=== PATIENT | male | born 1990 | race Caucasian/White ===

== ENCOUNTER → 2017-02-17 | Outpatient (REF) | payer MEDICAID | LOC: M LAB REF 16:41 | PROVIDERS: ATTEND Internal Medicine Medical Oncology | DX: Z86.73 Personal history of transient ischemic attack (TIA), and cerebral infarction without residual deficits (principal) ==

== ENCOUNTER → 2017-02-17 | Outpatient (REF) | payer OTHER ==
[2017-03-01 00:07] LABS: APTT 28.2 sec (.); Anticardiolipin Ab, IgA <10 APL (.); DRVTT Ratio 1.2 ratio (.); DRVTT Screen Seconds 48.2 sec (.); PROTEIN C ANTIGEN 82 % (60-150); PROTEIN S ANTIGEN FREE 116 % (57-157); PROTEIN S ANTIGEN TOTAL 115 % (60-150)
== END ==
LOC: M LAB REF 13:35
PROVIDERS: ATTEND Internal Medicine Medical Oncology
DX: Z86.73 Personal history of transient ischemic attack (TIA), and cerebral infarction without residual deficits (principal)

== ENCOUNTER → 2020-07-09 | Outpatient (CLI) | payer OTHER, MEDICAID ==
--- NOTE | 2020-07-11 03:11 | ECWPNPC ---
PATIENT NAME: HILARIO LEMOS : 1990 GENDER: MALE VISIT DATE: 07/09/2020 DISCHARGE DATE: 07/09/20 1331 VISIT LOCKED DATE TIME: PHYSICIAN: ALBA BAL RESOURCE: ALBA BAL REASON FOR APPOINTMENT 1. TESTICULAR PAIN HISTORY OF PRESENT ILLNESS DEPRESSION SCREENING: PHQ-2 (2015 EDITION) LITTLE INTEREST OR PLEASURE IN DOING THINGS?NOT AT ALL FEELING DOWN, DEPRESSED, OR HOPELESS?NOT AT ALL TOTAL SCORE0 30-YEAR-OLD MALE IN FOR INITIAL PAIN CONSULT REGARDING RIGHT TESTICULAR PAIN. PATIENT STATES THE PAIN HAS BEEN PRESENT FOR SEVERAL MONTHS AND HAS GOTTEN WORSE. HE DENIES HISTORY OF TRAUMA TO THE AREA. HE FURTHER DENIES ANY MEDICATIONS THAT HE HAS TRIED IN THE PAST THAT HAVE BEEN SUCCESSFUL IN ALLEVIATING HIS SYMPTOMS. GENERAL: - - -. FALL RISK SCREENING: SCREENING : NO FALLS REPORTED IN THE LAST YEAR , : NO FALLS REPORTED IN THE LAST YEAR. PAIN SCREENING: PATIENT HAS A COMPLAINT OF ACUTE OR CHRONIC PAIN :YES LOCATION OF PAIN:OTHER: RIGHT TESTICLE, GROIN INTENSITY OF PAIN (SCALE OF 1 TO 10):5 WHAT DOES YOUR PAIN FEEL LIKE:CONTINOUS, INTERMITTENT, SHARP, THROBBING DURATION:INTERMITTENT, AWAKENS FROM SLEEP PAIN IS INCREASED BY:ACTIVITIES, OTHERS COLD, PRESSURE PAIN IS DECREASED BY:OTHERS NOTHING SEEMS TO HELP NURSING NOTE: - - -. PAIN CENTER INTAKE QUESTIONS: DO YOU HAVE A HISTORY OF MRSA? :NO DO YOU TAKE A BLOOD THINNERS? :NO DO YOU HAVE ANY BLEEDING DISORDERS? :NO ANY NEW NUMBNESS OR WEAKNESS IN YOUR LEGS OR ARMS? :YES OCCASIONAL PAIN IN RIGHT LEG ANY PACEMAKER,DEFIBRILLATOR, OR DORSAL COLUMN STIMULATOR? :NO DO YOU HAVE ANY RASHES OR OPEN SORES? :NO ARE YOU ALLERGIC TO IV DYE? :NO ARE YOU DIABETIC? :NO ANY NEW PROBLEMS WITH YOUR MEDICATIONS? :NO HAVE YOU RECEIVED A VACCINE IN THE PAST 30 DAYS? :NO DO YOU PLAN TO RECEIVE A VACCINE IN THE NEXT 21 DAYS? :NO DO YOU NEED ANY PRESCRIPTION? :NO DO YOU TAKE ANY IMMUNOSUPPRESSIVE MEDICATIONS? :NO CURRENT MEDICATIONS TAKING IBUPROFEN 800 MG TABLET 1 TABLET WITH FOOD OR MILK NEEDED ORALLY EVERY 4 HOURS NEEDED TAKING ACETAMINOPHEN EXTRA STRENGTH 500 MG TABLET 1 TABLET NEEDED ORALLY EVERY 6 HRS NOT-TAKING TRAZODONE HCL 100 MG TABLET 1 TABLET AT BEDTIME ORALLY ONCE A DAY NOT-TAKING FLUOXETINE 20 MG CAPSULE 1 CAPSULE IN THE MORNING ORALLY ONCE A DAY MEDICATION LIST REVIEWED AND RECONCILED WITH THE PATIENT PAST MEDICAL HISTORY PULMONARY EMBOLISM ACL REPAIR ALLERGIES LATEX (FOR ALLERGY USE ONLY): HIVES / RASH CODEINE PHOSPHATE: NAUSEA/REDNESS - ALLERGY SOCIAL HISTORY GENERAL: TOBACCO USE ARE YOU A:CURRENT SMOKER LATEX QUESTIONNAIRE LATEX ALLERGY : HAVE YOU EVER DEVELOPED ANY TYPE OF REACTION AFTER HANDLING LATEX PRODUCTS SUCH RUBBER GLOVES, CONDOMS, DIAPHRAGMS, BALLOONS, SOCKS, OR UNDERWEAR?YES - PLEASE INDICATE :RUBBER GLOVES, CONDOMS, BALLOONS, DIAPHRAGMS, SOCKS, UNDERWEAR LATEX ALLERGY : HAVE YOU EVER DEVELOPED ANY TYPE OF REACTION DURING OR AFTER DENTAL APPOINTMENT, VAGINAL/RECTAL EXAMINATION, SURGICAL PROCEDURE, OR ANY OTHER EXPOSURE?NO LATEX RISK : HAVE YOU EVER HAD ANY DIFFICULTY BREATHING OR HIVES AFTER EATING OR HANDLING ANY FRUITS, OR VEGETABLES; SUCH KIWI, BANANAS, STONE FRUITS, OR CHESTNUTSNO LATEX RISK : DO YOU HAVE A PREVIOUS PERSONAL HISTORY OF MORE THAN NINE SURGERIES, SPINA BIFIDA, OR REPEATED CATHERIZATIONS? NO LATEX RISK : ARE YOU FREQUENTLY EXPOSED TO LATEX PRODUCTS IN YOUR OCCUPATION?NO DATE ASKED : 07/09/2020 ALCOHOL USE: ONCE A WEEK. RECREATIONAL DRUG USE DRUG USE?YES MARIJUANA NEEDED FOR PAIN CAFFEINE CAFFEINE USE?YES HOW OFTEN AND HOW MUCH? EVERY OTHER DAY LEARNING BARRIERS / SPECIAL NEEDS CHANGE FROM LAST VISIT?NO BARRIERS TO LEARNING?NO HEARING IMPAIRED?NO VISION IMPAIRED?YES :CORRECTIVE LENSES COGNITIVELY IMPAIRED?NO READINESS TO LEARN?YES LEARNING PREFERENCES?NO LEARNING CAPABILITIES PRESENT?YES EMOTIONAL BARRIERS?NO SPECIAL DEVICES?NO WATER CONTROL SUPERVISOR NEEDED?NO REVIEW OF SYSTEMS CONSTITUTIONAL: ANY RECENT FEVER NO . CHILLS NO . WEIGHT CHANGE OF UNKNOWN REASONS NO . MUSCULOSKELETAL: ANY UNUSUAL JOINT PAIN OR SWELLING NOT MENTIONED NO . SYSTEMIC LUPUS NO . ANY NEUROMUSCULAR DISORDER NOT MENTIONED NO . LYME DISEASE NO . GASTROENTEROLOGY: ANY NEW CHANGE IN BOWEL CONTROL? NO . HISTORY OF LIVER DISORDER NOT MENTIONED NO . HISTORY OF UNUSUAL ABDOMINAL PAIN OR CRAMPING NOT MENTIONED NO . NO CONSTIPATION. GENITOURINARY: ANY NEW CHANGE IN BLADDER CONTROL? NO . ANY RENAL/KIDNEY CONDITON NOT MENTIONED NO . NEUROLOGY: HISTORY OF TBI NOT MENTIONED NO . OTHER NEW NUMBNESS OR PAIN PATTERNS NOT MENTIONED NO . NEW ONSET DIZZINESS OR NEUROLOGICAL CHANGES NOT MENTIONED NO . HISTORY OF SEVERE HEADACHES NOT MENTIONED NO . HISTORY OF STROKE OR NEUROLOGICAL DISORDER NOT MENTIONED NO . CARDIOLOGY: HEART SURGERY NO . CONGESTIVE HEART FAILURE/FLUID OVERLOAD NOT MENTIONED NO . HISTORY OF CHEST PAIN,IRREGULAR HEART BEAT NOT MENTIONED NO . RESPIRATORY: SHORTNESS OF BREATH ON EXERTION, WHEEZES, UNUSUAL COUGH NOT MENTIONED NO . ENDOCRINOLOGY: ADRENAL GLAND OR THYROID DISORDERS NOT MENTIONED NO . UNUSUAL URINATION, DIZZINESS OR LETHARGY NOT MENTIONED NO . VITAL SIGNS WT 207.2 LBS, HT 70 IN, BMI 29.73 INDEX, BP 136/85 MM HG, HR 95 /MIN, RR 18 /MIN, TEMP 98.1 F, OXYGEN SAT % 98.1, SAFE IN ENV? (Y/N) YES, NA INITIALS NE 12:59, REVIEWED BY: ARASH HARRINGTON MA. EXAMINATION GENERAL EXAMINATION: GENERALNO ACUTE DISTRESS, WELL NOURISHED AND HYDRATED. PSYCHAPPROPRIATE MOOD AND AFFECT . LUNGS:CLEAR TO AUSCULTATION BILATERALLY, NO WHEEZES, RHONCHI, RALES. HEART:NO MURMURS, REGULAR RATE AND RHYTHM. MALE GENITOURINARY:RIGHT TESTICLE EXQUISITELY TENDER , SURROUNDING SKIN SHOWS NO ERYTHEMA, ECCHYMOSIS, INCREASED WARMTH, AND/OR SKIN ERUPTIONS NOTED. . ASSESSMENTS RIGHT TESTICULAR PAIN - N50.811 (PRIMARY) TREATMENT RIGHT TESTICULAR PAIN START LYRICA CAPSULE, 75 MG, 1 CAPSULE, ORALLY, TWICE DAILY, 30 DAYS, 60 NOTES: 30-YEAR-OLD MALE IN FOR INITIAL PAIN CONSULT. GIVEN PRESENTING SYMPTOMS RECOMMENDED LYRICA 75 MG TWICE A DAY WITH FOLLOW-UP IN ONE MONTH TO DETERMINE EFFICACY OF TREATMENT. PATIENT HAS EXPRESSED UNDERSTANDING OF AND WAS IN AGREEMENT WITH TREATMENT PLAN. GIVEN TIME TO ASK QUESTIONS AND EXPRESS CONCERNS. , [employer] REGISTRY REVIEWED AND DEMONSTRATES COMPLLIANCE. (REF # [id number] ). CLINICAL NOTES: MEDICATION INFORMATION PRINTED AND PROVIDED TO PATIENT. PATIENT VERBALIZED UNDERSTANDING. JASE HARRINGTON MA. PROCEDURE CODES [id number] ESTABILISHED PATIENT [facility] CHARGE DISPOSITION & COMMUNICATION FOLLOW UP 4 WEEKS (REASON: RIGHT) ELECTRONICALLY SIGNED BY ALINE CARDOSO ON 07/10/2020 AT 09:00 AM EDT DISCLAIMER : THIS IS A VISIT SUMMARY EXTRACTED FROM THE Doctor kinetic CHART. IT IS NOT A COPY OF THE Doctor kinetic PROGRESS NOTE. [facility]
== END ==
LOC: M PAIN 13:00
PROVIDERS: ATTEND Family Medicine
DX: N50.811 Right testicular pain (principal); Z86.711 Personal history of pulmonary embolism; F17.210 Nicotine dependence, cigarettes, uncomplicated; Z91.040 Latex allergy status; Z88.5 Allergy status to narcotic agent

== ENCOUNTER 2021-07-12 13:21 | Emergency (ER) | payer MEDICAID, OTHER ==
[~2021-07-12] VITALS: Ht 182.9 cm; Wt 95.9 kg
[2021-07-12] MEDS ORDERED: ALBU8.5H (13:30)
[2021-07-12] MEDS ORDERED: OMEP40CA5 (13:30)
[2021-07-12] MEDS ORDERED: INCR1INH (13:30)
[2021-07-12] MEDS ORDERED: NICO2GUM41 (13:30)
[2021-07-12] MEDS ORDERED: NICO7DIS30 (13:30)
[2021-07-12 14:05] LABS: HEMATOCRIT 43.9 % (42.0-52.0); HEMOGLOBIN 15.5 g/dl (13.5-17.5); MEAN CORPUSCULAR HEMOGLOBIN 30.9 pg (27.0-33.0); MEAN CORPUSCULAR HGB CONC 35.3 g/dl (32.0-36.5); MEAN CORPUSCULAR VOLUME 87.5 fl (80.0-96.0); PLATELET COUNT, AUTOMATED 331 10^3/uL (150-450); RED BLOOD COUNT 5.02 10^6/uL (4.30-6.10); WHITE BLOOD COUNT 13.9 10^3/uL (4.0-10.0)
[2021-07-12] MEDS ORDERED: MORPHINE 2 MG/ML 1ML VIAL (J2270) IV ONE (14:05)
[2021-07-12 14:19] LABS: INR 0.86; PARTIAL THROMBOPLASTIN TIME 27.1 SECONDS (25.9-37.0); PROTHROMBIN TIME 12.1 SECONDS (12.7-14.5)
[2021-07-12] MEDS ORDERED: NS 500 ML IV ONE (14:25)
[2021-07-12] MEDS ORDERED: IPRATROPIUM 0.5MG/ALBUTEROL 2.5MG INH SOL UD 3ML (DUONEB) NEB ONE (14:35)
[2021-07-12] MEDS ORDERED: ALBUTEROL SULFATE 2.5 MG/0.5 ML INH NEB SOLN INH ONE (14:35)
[2021-07-12 14:37] LABS: ATYPICAL LYMPH 4 % (0-5); EOSINOPHILS 5 % (0-3); LYMPHOCYTES 28 % (16-44); MONOCYTES 3 % (0-5); NEUTROPHILS 60 % (28-66)
[2021-07-12 14:38] LABS: PLATELET ESTIMATE NORMAL (NORMAL)
[2021-07-12] MEDS ORDERED: ISOVUE-370 76% 100ML VIAL As Ordered ONE (14:45)
[2021-07-12] MEDS ORDERED: MORPHINE 4 MG/ML 1ML VIAL/SYRINGE (J2270) IV ONE (15:00)
[2021-07-12 15:05] LABS: ABG BASE EXCESS -0.4 (-2.0-2.0); ABG HCO3 22.5 MEQ/L (22.0-26.0); ABG O2 SATURATION 98.4 % (95.0-99.0); ABG PARTIAL PRESSURE CO2 32.1 mmHg (35.0-45.0); ABG PARTIAL PRESSURE O2 125.5 mmHg (75.0-100.0); ABG STANDARD HCO3 24.2 MEQ/L (22.0-26.0); ABG TOTAL CO2 23.5 MEQ/L (22.0-29.0); ABG pH (ARTERIAL) 7.463 UNITS (7.350-7.450)
[2021-07-12 15:21] LABS: RSV AMPLIFICATION NEGATIVE (NEGATIVE)
[2021-07-12 15:22] LABS: ALBUMIN 3.6 GM/DL (3.2-5.2); BILIRUBIN,DIRECT 0.1 MG/DL (0.0-0.2); BILIRUBIN,TOTAL 0.5 MG/DL (0.2-1.0); FREE T4 1.16 NG/DL (0.76-1.46); THYROID STIMULATING HORMONE 2.89 uIU/ML (0.358-3.740); TOTAL PROTEIN 7.1 GM/DL (6.4-8.2)
[2021-07-12] MEDS ORDERED: methylPREDNISolone 40MG 1ML VIAL IV ONE (17:25)
[2021-07-12] MEDS ORDERED: methylPREDNISolone 125MG 2ML VIAL IV ONE (17:30)
[2021-07-12] MEDS ORDERED: DOXYCYCLINE HYCLATE 100MG TABLET PO ONE (17:35)
[2021-07-12] MEDS ORDERED: DOXY-350 PO (17:36)
[2021-07-12] MEDS ORDERED: PRED20TA PO (17:36)
[2021-07-12 17:47] VITALS: BP 114/60
== END 2021-07-12 18:17 | disposition home or self-care (01) ==
LOC: M ED 13:21
DX: J20.9 Acute bronchitis, unspecified (principal); J45.901 Unspecified asthma with (acute) exacerbation; Z86.711 Personal history of pulmonary embolism; Z87.442 Personal history of urinary calculi; Z91.040 Latex allergy status; Z79.899 Other long term (current) drug therapy
CPT/HCPCS: 36600; 71045; 71275; 80047; 80076; 82803; 83605; 83690; 83880; 84439; 84443; 85025; 85610; 85730; 87631; 93005; 93041; 93971; 94640; 94760; 96361; 96374; 96375; 99285; J2270; J2930; Q9967

== ENCOUNTER 2022-07-08 12:16 | Emergency (ER) | payer OTHER ==
[~2022-07-08] VITALS: Ht 180.3 cm; Wt 95.5 kg
[~2022-07-08 12:16] MED LIST: ALBU8.5H; DOXY-444 PO; INCR1INH; NICO2GUM41; NICO7DIS30; OMEP40CA5; PRED20TA PO
[2022-07-08] MEDS ORDERED: LISI20TA33 (12:30)
[2022-07-08] MEDS ORDERED: BUPR150T12 (12:30)
[2022-07-08] MEDS ORDERED: METO1TAB7 (12:30)
[2022-07-08] MEDS ORDERED: CETI-24 (12:30)
[2022-07-08] MEDS ORDERED: PRAZ1CAP (12:30)
[2022-07-08] MEDS ORDERED: KETOROLAC 30 MG/ML 1ML VIAL IM ONE (14:30)
[2022-07-08] MEDS ORDERED: PERCOCET 5MG/325MG TAB PO ONE (14:30)
[2022-07-08] MEDS ORDERED: MEDR4PAK PO (14:55)
[2022-07-08] MEDS ORDERED: PERC5TAB12 PO (14:55)
[2022-07-08 15:06] VITALS: BP 146/84
== END 2022-07-08 15:08 | disposition home or self-care (01) ==
LOC: M ED 12:16
DX: G57.22 Lesion of femoral nerve, left lower limb (principal); I10 Essential (primary) hypertension; J44.9 Chronic obstructive pulmonary disease, unspecified; Z87.442 Personal history of urinary calculi; F32.A Depression, unspecified; F41.9 Anxiety disorder, unspecified; Z91.040 Latex allergy status; Z79.51 Long term (current) use of inhaled steroids; Z79.899 Other long term (current) drug therapy
CPT/HCPCS: 96372; 99284; J1885

== ENCOUNTER → 2022-07-16 | Outpatient (CLI) | payer OTHER ==
[~2022-07-16] MED LIST changes: +BUPR150T12; +CETI-24; +LISI20TA33; +MEDR4PAK PO; +METO1TAB7; +PERC5TAB12 PO; +PRAZ1CAP
== END ==
LOC: M SOG 09:37
PROVIDERS: ATTEND Orthopaedic Surgery
DX: M25.562 Pain in left knee (principal)

== ENCOUNTER → 2022-07-21 | Outpatient (CLI) | payer OTHER | LOC: M RAD 07-17 09:10 → M PLAIMG 13:10 | PROVIDERS: ATTEND Orthopaedic Surgery | DX: M25.562 Pain in left knee (principal) ==

== ENCOUNTER 2023-09-08 11:48 | Day surgery (SDC) | payer OTHER ==
[~2023-09-08] VITALS: Ht 182.9 cm; Wt 94.3 kg
[2023-09-08] MEDS: NS 1,000 ML IV ONE (06:00)
[~2023-09-08 11:48] MED LIST changes: -CETI-24; +CETI-24 PO; +DOXY-440 PO; -DOXY-444 PO; +ERGO500029 PO; +IBUP80TA PO; -LISI20TA33; +LISI20TA33 PO; -METO1TAB7; +METO1TAB7 PO; -OMEP40CA5; +OMEP40CA5 PO; -PRAZ1CAP; +PRAZ1CAP PO
[2023-09-08] MEDS ORDERED: propofoL 200 MG/20 ML VIAL As Ordered ONE (13:29)
[2023-09-08] MEDS ORDERED: LIDOCAINE 2% 100MG/5ML SDV (FOR ANES.) As Ordered ONE (13:29)
[2023-09-08] MEDS ORDERED: fentaNYL 100 MCG/2 ML INJECTION As Ordered ONE (13:51)
[2023-09-08 14:17] VITALS: TEMP 97.7
[2023-09-08 14:45] VITALS: BP 149/76; O2SAT 100
== END 2023-09-08 14:55 | disposition home or self-care (01) ==
LOC: M OPP 11:48
PROVIDERS: ATTEND Internal Medicine Gastroenterology
DX: K57.31 Diverticulosis of large intestine without perforation or abscess with bleeding (principal); K64.8 Other hemorrhoids; K64.4 Residual hemorrhoidal skin tags; K21.9 Gastro-esophageal reflux disease without esophagitis; I10 Essential (primary) hypertension; Z86.711 Personal history of pulmonary embolism; Z79.899 Other long term (current) drug therapy; F17.210 Nicotine dependence, cigarettes, uncomplicated; Z88.8 Allergy status to other drugs, medicaments and biological substances; Z91.040 Latex allergy status
CPT/HCPCS: 45378; J3010

== ENCOUNTER 2025-01-09 04:50 | Emergency (ER) | payer OTHER ==
[~2025-01-09] VITALS: Ht 177.8 cm; Wt 91.8 kg
[2025-01-09 05:44] LABS: BASO # 0.1 10^3/uL (0.0-0.2); BASO % 0.6 % (0.0-1.0); EOS # 0.4 10^3/uL (0.0-0.5); EOS % 3.0 % (0.0-3.0); LYMPH # 2.7 10^3/uL (1.5-5.0); LYMPH % 21.3 % (24.0-44.0); MONO # 0.8 10^3/uL (0.0-0.8); MONO % 6.2 % (2.0-8.0); NEUTROPHILS # 8.8 10^3/uL (1.5-8.5); NEUTROPHILS % 68.5 % (36.0-66.0); PLATELET COUNT, AUTOMATED 326 10^3/uL (150-450)
[2025-01-09 05:49] LABS: CK-MB VALUE MASS 1.6 NG/ML (<3.6)
[2025-01-09 05:50] LABS: CALCIUM LEVEL 9.5 MG/DL (8.5-10.1); CARBON DIOXIDE LEVEL 25 MMOL/L (20-31); CHLORIDE LEVEL 105 MMOL/L (98-107); CREATININE FOR GFR 0.90 MG/DL (0.70-1.30); GLOMERULAR FILTRATION RATE > 90.0 (>60); POTASSIUM SERUM 3.9 MMOL/L (3.5-5.1); SODIUM LEVEL 137 MMOL/L (136-145)
[2025-01-09 05:53] LABS: CPK CREATINE PHOSPHOKINASE 165 U/L (46-171); MB/CK RELATIVE INDEX 0.96 (< OR =4)
[2025-01-09] MEDS: ONDANSETRON 4MG 2ML VIAL IV ONE (06:29)
[2025-01-09] MEDS: MORPHINE 4 MG/ML 1 ML VIAL IV PRN (06:30)
[2025-01-09] MEDS ORDERED: ISOVUE-370 76% 100 ML VIAL As Ordered ONE (06:32)
[2025-01-09 07:45] LABS: CK-MB VALUE MASS 1.3 NG/ML (<3.6)
[2025-01-09 07:46] LABS: CPK CREATINE PHOSPHOKINASE 136.0 U/L (46-171); MB/CK RELATIVE INDEX 0.95 (< OR =4)
[2025-01-09 08:50] VITALS: TEMP 97.5; O2SAT 98
[2025-01-09 08:58] LABS: SOFIA COVID ANTIGEN NEGATIVE (NEGATIVE)
[2025-01-09 09:10] VITALS: BP 107/58
== END 2025-01-09 09:11 | disposition home or self-care (01) ==
LOC: M ED 04:50
DX: R07.9 Chest pain, unspecified (principal); R91.1 Solitary pulmonary nodule; F12.10 Cannabis abuse, uncomplicated; Z86.711 Personal history of pulmonary embolism; Z91.040 Latex allergy status; Z88.8 Allergy status to other drugs, medicaments and biological substances; Z79.51 Long term (current) use of inhaled steroids; Z79.1 Long term (current) use of non-steroidal anti-inflammatories (NSAID); Z79.899 Other long term (current) drug therapy
CPT/HCPCS: 71045; 71275; 80048; 82550; 82553; 84484; 85025; 85379; 87428; 93005; 93041; 93971; 94760; 96374; 96375; 99285; J2405; Q9967